=== PATIENT | female | born 1940 | race Two or more races ===

== ENCOUNTER 2024-07-07 05:17 | Inpatient (IN) | payer MEDICAID, OTHER ==
[~2024-07-07] VITALS: Ht 157.5 cm; Wt 27.7 kg
[2024-07-07 06:48] LABS: Basophils # (auto) 0.1 10 ^3/uL (0-0.2); Basophils % (auto) 0.7 % (0.0-2.0); Eosinophils # (auto) 0.9 10 ^3/uL (0-0.8); Eosinophils % (auto) 8.7 % (0.0-7.0); Hematocrit 43.4 % (36.0-46.0); Hemoglobin 14.7 g/dL (12.2-16.2); Lymphocytes # (auto) 1.9 10 ^3/uL (0.4-5.4); Lymphocytes % (auto) 18.4 % (10.0-50.0); Mean Corpuscular Hemoglobin 30.5 pg (28.0-32.0); Mean Corpuscular Volume 89.7 fL (80.0-100.0); Monocytes # (auto) 0.5 10 ^3/uL (0-1.3); Monocytes % (auto) 4.9 % (0.0-12.0); Neutrophils % (auto) 67.3 % (37.0-80.0); Nucleated Red Blood Cells % 0.1 %; Red Blood Cells 4.84 10^6/uL (4.0-5.20); Red Cell Distribution Width 14.7 % (11.8-14.3); White Blood Cell 10.4 10^3/uL (4.4-10.8)
[2024-07-07 06:51] LABS: Urine Bacteria None Seen /hpf (None Seen)
[2024-07-07] MEDS: ACETAMINOPHEN 325 MG TAB PO ONE (06:52)
[2024-07-07] MEDS: MORPHINE SULFATE INJ 2 MG/ml SYRG IV ONE (06:52)
[2024-07-07] MEDS: TAMSULOSIN HYDROCHLORIDE 0.4 MG CAP PO ONE (06:52)
[2024-07-07 06:58] LABS: INR 1.02 (0.9-1.15); Partial Thromboplastin Time 27.5 SEC (24.5-34.5); Prothrombin Time 10.8 sec (9.3-11.8)
[2024-07-07 07:03] LABS: Alanine Aminotransferase 15 U/L (7-40); Albumin 4.2 g/dL (3.2-4.8); Alkaline Phosphatase 78 U/L (46-116); Anion Gap 8 (5-15); Aspartate Aminotransferase 16 U/L (13-40); BUN/Creatinine Ratio 14.5 (10.0-20.0); Blood Urea Nitrogen 10 mg/dL (9-23); Calcium 9.7 mg/dL (8.7-10.4); Carbon Dioxide 29 mmol/L (20-30); Chloride 104 mmol/L (98-107); Glucose 134 mg/dL (74-106); Lipase 43 U/L (12-53); Sodium 141 mmol/L (136-145)
[2024-07-07 07:04] LABS: Bilirubin, Total 0.6 mg/dL (0.2-1.0); Total Protein 7.3 g/dL (5.7-8.2)
[2024-07-07 07:07] LABS: Urine Blood Negative /uL (Negative); Urine Clarity Clear (Clear); Urine Color Colorless (Yellow); Urine Protein, UAD Negative (Negative); Urine Specific Gravity 1.006 (1.001-1.035); Urine Urobilinogen Normal (Negative); Urine WBC <1 /hpf (0 - 5)
[2024-07-07 07:46] VITALS: PULSE 55; RESP 12; O2SAT 95
[2024-07-07] MEDS: LIDOCAINE VISCOUS 2% 15ML UD PO ONE (08:09)
[2024-07-07] MEDS ORDERED: DOCUSATE SOD 100 MG CAP PO PRN ×2 (09:00→09:15)
[2024-07-07] MEDS ORDERED: SODIUM CHLORIDE 0.9% 1,000 ML IV SCH (09:00)
[2024-07-07] MEDS ORDERED: MORPHINE SULFATE INJ 2 MG/ml SYRG IV PRN ×2 (09:00→09:15)
[2024-07-07] MEDS ORDERED: ONDANSETRON HCL 4 MG/2 ML VIAL IV PRN ×2 (09:00→09:15)
[2024-07-07] MEDS ORDERED: NITROGLYCERIN 0.4 MG SL TAB SL PRN ×2 (09:00→09:15)
[2024-07-07] MEDS ORDERED: PIPERACILLIN-TAZOB 3.375GM 100 ML IV ONE ×2 (09:15→10:13)
[2024-07-07] MEDS: GASTROGRAFIN 120 ML SOL ONE (10:58)
[2024-07-07 11:07] LABS: INR 1.03 (0.9-1.15); Prothrombin Time 10.9 sec (9.3-11.8)
[2024-07-07] MEDS: SODIUM CHLORIDE 0.9% 1,000 ML IV SCH (11:54)
[2024-07-07] MEDS: PIPERACILLIN-TAZOB 3.375GM 100 ML IV SCH (11:54)
[2024-07-07] MEDS ORDERED: PIPERACILLIN-TAZOB 3.375GM 100 ML IV SCH (12:00)
[2024-07-07] MEDS ORDERED: ATOR10TA52 PO (17:14)
[2024-07-07] MEDS ORDERED: LISI-283 PO (17:14)
[2024-07-07] MEDS: PANTOPRAZOLE 40 MG/10 ML VIAL INJ IV ONE (17:46)
[2024-07-07 17:54] VITALS: BP 140/83; PULSE 68; RESP 18; TEMP 98.1; O2SAT 95
[2024-07-07 20:00] VITALS: O2SAT 97
[2024-07-07 21:00] VITALS: BP 110/53; PULSE 68; RESP 18; TEMP 98; O2SAT 90
[2024-07-08 05:00] VITALS: BP 137/60; PULSE 63; RESP 17; TEMP 97.8; O2SAT 92
[2024-07-08 05:54] LABS: Basophils # (auto) 0.1 10 ^3/uL (0-0.2); Basophils % (auto) 0.7 % (0.0-2.0); Eosinophils # (auto) 0.7 10 ^3/uL (0-0.8); Eosinophils % (auto) 7.9 % (0.0-7.0); Hematocrit 40.4 % (36.0-46.0); Lymphocytes # (auto) 1.9 10 ^3/uL (0.4-5.4); Lymphocytes % (auto) 21.6 % (10.0-50.0); Mean Corpuscular Hgb Conc. 34.6 g/dL (32.0-36.0); Mean Corpuscular Volume 89.5 fL (80.0-100.0); Monocytes # (auto) 0.6 10 ^3/uL (0-1.3); Monocytes % (auto) 7.3 % (0.0-12.0); Neutrophils # (auto) 5.4 10 ^3/uL (1.6-8.6); Neutrophils % (auto) 62.5 % (37.0-80.0); Nucleated Red Blood Cells % 0.1 %; Red Blood Cells 4.51 10^6/uL (4.0-5.20); Red Cell Distribution Width 14.6 % (11.8-14.3); White Blood Cell 8.6 10^3/uL (4.4-10.8)
[2024-07-08 06:17] LABS: Alanine Aminotransferase 13 U/L (7-40); Albumin 3.6 g/dL (3.2-4.8); Alkaline Phosphatase 71 U/L (46-116); Anion Gap 7 (5-15); Aspartate Aminotransferase 14 U/L (13-40); BUN/Creatinine Ratio 15.3 (10.0-20.0); Blood Urea Nitrogen 11 mg/dL (9-23); Calcium 9.2 mg/dL (8.7-10.4); Carbon Dioxide 28 mmol/L (20-30); Chloride 107 mmol/L (98-107); Glucose 117 mg/dL (74-106); Potassium 3.8 mmol/L (3.5-5.1); Sodium 142 mmol/L (136-145)
[2024-07-08 06:18] LABS: Total Protein 6.1 g/dL (5.7-8.2)
[2024-07-08 09:00] VITALS: BP 113/55; PULSE 60; RESP 16; TEMP 97.7; O2SAT 94
[2024-07-08] MEDS: PANTOPRAZOLE 40 MG/10 ML VIAL INJ IV SCH (11:46)
[2024-07-08 13:00] VITALS: BP 130/54; PULSE 60; RESP 18; TEMP 98.1; O2SAT 94
[2024-07-08 16:37] VITALS: BP 129/53; PULSE 58; RESP 18; TEMP 98; O2SAT 96
[2024-07-08] MEDS: PIPERACILLIN-TAZOB 3.375GM 100 ML IV SCH (18:51)
[2024-07-08 21:00] VITALS: BP 118/73; PULSE 64; RESP 18; TEMP 98.6; O2SAT 94
[2024-07-09] VITALS (8 sets, daily range): BP systolic 99–143; BP diastolic 55–74; PULSE 52–66; RESP 15–18; TEMP 97.6–98.5; O2SAT 94–98
[2024-07-10 01:00] VITALS: BP 108/56; PULSE 57; RESP 18; TEMP 97.7; O2SAT 92
[2024-07-10 05:00] VITALS: BP 108/55; PULSE 56; RESP 18; TEMP 98.1; O2SAT 97
[2024-07-10 08:00] VITALS: RESP 18
[2024-07-10 09:00] VITALS: BP 144/69; PULSE 65; RESP 19; TEMP 97.7; O2SAT 95
== END 2024-07-10 13:43 | disposition home or self-care (01) | DRG 249 ==
LOC: EDBD 05:17 → ER 05:17 → OVERFLOW 08:59 → ER 09:09 → WEST WING 16:25
PROVIDERS: ADMIT Nurse Practitioner Family; ATTEND Family Medicine
PROC: 0DH67UZ Insertion of Feeding Device into Stomach, Via Natural or Artificial Opening (ICD-10-PCS; principal; 2024-07-07)
DX: K52.9 Noninfective gastroenteritis and colitis, unspecified (principal); K56.600 Partial intestinal obstruction, unspecified as to cause; E78.00 Pure hypercholesterolemia, unspecified; I10 Essential (primary) hypertension; K29.80 Duodenitis without bleeding; E78.5 Hyperlipidemia, unspecified
CPT/HCPCS: 36415; 71045; 74176; 74250; 80053; 81001; 83605; 83690; 85025; 85610; 85730; 86850; 86900; 86901; 87086; 96374; 97110; 97116; 97163; 97530; G0378; J2470; J2543